=== PATIENT | female | born 1945 | race Caucasian/White ===

== ENCOUNTER 2019-05-16 11:50 | Outpatient (CLI) | payer MEDICARE, OTHER | END 2019-05-16 11:51 | disposition home or self-care (01) | LOC: LAB 11:50 | PROVIDERS: ATTEND Internal Medicine | DX: I77.9 Disorder of arteries and arterioles, unspecified (principal); H34.8192 Central retinal vein occlusion, unspecified eye, stable; Z82.49 Family history of ischemic heart disease and other diseases of the circulatory system | CPT/HCPCS: 36415; 81241; 81599; 85300; 85303; 85306; 85307; 86146; 86147; 86148 ==

== ENCOUNTER 2024-05-26 18:59 | Emergency (ER) | payer MEDICARE, OTHER ==
[2024-05-26 19:33] LABS: BASOPHILS % (AUTO) 0.6 %; EOSINOPHILS # (AUTO) 0.2 10^3/uL (0.0-0.7); EOSINOPHILS % (AUTO) 2.2 %; HCT - HEMATOCRIT 38.1 % (37.0-47.0); HGB - HEMOGLOBIN 12.5 g/dL (12.0-16.0); LYMPHOCYTES # (AUTO) 1.1 10^3/uL (1.5-3.5); LYMPHOCYTES % (AUTO) 16.4 %; MEAN CORPUSCULAR HEMOGLOBIN 30.9 pg (27.0-31.0); MEAN CORPUSCULAR HGB CONC 32.8 g/dL (32.0-36.0); MEAN CORPUSCULAR VOLUME 94.1 fL (81.0-99.0); MEAN PLATELET VOLUME 8.5 fL (7.9-10.8); MONOCYTES # (AUTO) 1.1 10^3/uL (0.0-1.0); MONOCYTES % (AUTO) 16.1 %; NEUTROPHILS # (AUTO) 4.5 10^3/uL (1.5-6.6); NEUTROPHILS % (AUTO) 64.3 %; PLT - PLATELET COUNT 233 10^3/uL (130-450); RED BLOOD COUNT 4.05 10^6/uL (4.20-5.40); RED CELL DISTRIBUTION WIDTH 12.9 % (12.0-15.0); WHITE BLOOD COUNT 6.9 x10^3/uL (4.8-10.8)
[2024-05-26] MEDS: methocarbamoL 500 MG TABLET PO STA (19:43)
[2024-05-26] MEDS: ACETAMINOPHEN 325 MG TABLET PO STA (19:43)
[2024-05-26] MEDS: LIDOCAINE PATCH 4% TOP STA (19:44)
--- NOTE | 2024-05-26 19:49 | ED Physician Documentation ---
History of Present Illness - Stated complaint Stated Complaint: NECK PX - Chief complaint Chief Complaint: Trauma Hd/Nk - Additonal information Additional information: 78-year-old female presents with upper back pain. History clarified from triage notes. Patient states in the last few days, she was working heavily in the garden, then developed right upper back pain that radiated towards her left upper back and involves bilateral posterior neck as well. She notes having had similar pain in the past with activity. She has no chest pain or shortness of breath. Pain is not affected by exertion. Her neck is not stiff, though twisting mildly worsens pain. No headache. No nausea or vomiting. No fevers or chills. No rash. No visual or hearing changes, focal numbness or weakness, difficulty walking or talking or eating. She takes aspirin at home in the setting of history of Leyden factor V, but denies other pain medications or anticoagulation. She is here with spouse. No other new concerns. She denies prior neck surgeries to me. ROS Constitutional: no fever, no chills Eyes: no visual disturbance, no discharge Ears, Nose, Mouth, Throat: no rhinorrhea, no sore throat Cardiovascular: no chest pain, no palpitations Respiratory: no cough, no shortness of breath Gastrointestinal: no abdominal pain, no vomiting, no diarrhea Genitourinary: no dysuria, no hematuria Musculoskeletal: +as above back pain, no neck stiffness Skin: no rash, no wound Neurological: no focal weakness, no focal numbness PD PAST MEDICAL HISTORY - Past Medical History Past Medical History: Yes Cardiovascular: Arrhythmia - Past Surgical History Cardiovascular: Angioplasty - Present Medications Home Medications: Ambulatory Orders Medication Instructions Recorded Confirmed Lidocaine Patch 5% [Lidoderm Patch] 1 each PATCH DAILY PRN #30 patch 05/26/24 methocarbamoL [Methocarbamol] 500 mg PO Q8H PRN #10 tablet 05/26/24 - Allergies Allergies/Adverse Reactions: Allergies Allergy/AdvReac Type Severity Reaction Status Date / Time Penicillins Allergy Emesis Verified 05/26/24 19:04 tetracycline Allergy Emesis Verified 05/26/24 19:04 - Social History Does the pt smoke?: No Smoking Status: Never smoker Does the pt drink ETOH?: No Does the pt have substance abuse?: No - Immunizations Immunizations are current?: Yes PD ED PE NORMAL - Free text exam Free text exam: Const: no acute distress, non toxic appearing; calm, conversant, pleasant Eyes: PERRLA, EOMI ENT: mucous membranes moist Neck: supple, non-tender; there is mild bilateral paraspinal C-spine tenderness without tenderness over C-spine itself, with no bruits or thrills, lesions, swelling; pain mildly worsens with patient rotating head either direction Resp: no respiratory distress, clear to auscultation bilaterally Card: regular rate and rhythm, no murmurs Abd: non tender diffusely, no rigidity or rebound or guarding Back: no T or L spine tenderness, no CVA tenderness bilaterally; there is mild trapezius tenderness bilaterally without induration, lesions Extrem: no deformities, no swelling bilateral lower extremities, 2+ distal pulses all extremities; 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 testing specialist 2-12 intact. No rotatory or vertical nystagmus. Normal tone all extremities. Sensation intact to light touch all extremities. No ankle clonus bilaterally. 5/5 motor strength all extremities. Normal coordination. Negative Romberg. Normal gait. No dysarthria. No neglect. Grossly normal cognition. Skin: no rash, warm and dry Results - Vitals Vitals: Vital Signs - 24 hr 05/26/24 05/26/24 19:04 22:21 Temperature 36.5 C Heart Rate 100 86 Respiratory 16 14 Rate Blood Pressure 150/90 H 142/100 H O2 Saturation 100 98 Oxygen O2 Source Room air - EKG (time done) EKG afib with rate WNL, no STEMI, no immediately concerning interval prolongation; see MDM. EKG releavant findings:: EKG personally interpreted by author of this note. Relevant findings are: Repeat EKG remains afib with rate WNL, with similar morphology to prior including T-waves, no STEMI, no immediately concerning interval prolongation. EKG releavant findings:: EKG personally interpreted by author of this note. Relevant findings are: - Labs Labs: Laboratory Tests 05/26/24 05/26/24 05/26/24 19:29 19:29 21:27 WBC 6.9 RBC 4.05 L Hgb 12.5 Hct 38.1 MCV 94.1 MCH 30.9 MCHC 32.8 RDW 12.9 Plt Count 233 MPV 8.5 Neut # (Auto) 4.5 Lymph # (Auto) 1.1 L Cannon # (Auto) 1.1 H Eos # (Auto) 0.2 Baso # (Auto) 0.0 Absolute Nucleated RBC 0.00 Nucleated RBC % 0.0 Sodium 132 L Potassium 4.3 Chloride 98 L Carbon Dioxide 28 Anion Gap 6.0 BUN 20 Creatinine 0.7 Estimated GFR (MDRD) 81 L Glucose 112 H Calcium 9.4 Total Bilirubin 0.6 AST 16 ALT 12 Alkaline Phosphatase 60 Troponin I High Sens 13.2 13.9 Total Protein 7.5 Albumin 3.9 Globulin 3.6 Albumin/Globulin Ratio 1.1 PD Medical Decision Making - ED course ED course: This patients presentation is strongly suggestive of musculoskeletal cause for pain. Patient has palpable tenderness, worsening pain with rotation of head, with no clear exertional symptoms, no chest pain, shortness of breath. She is fully neurovacularly intact. I have nonetheless considered ACS from referred pain and will obtain and trend EKG and troponin. This is not consistent with vascular dissection such as vertebral artery dissection, with patient fully neurovascularly intact and with bilateral tenderness. This is not consistent with meningitis, shingles or other infection. This is not consistent with fracture. I am giving tylenol, lidocaine patches, methocarbal and will closely reassess, while obtaining EKG, CBC, CMP, troponin. EKG: Probable atrial fibrillation with rate within normal limits, no STEMI, no chest pain, however note T wave inversions in lateral leads and at minimum T wave flattening in inferior leads. No immediately concerning interval prolongation Labs: CBC reassuring, no leukocytosis, anemia, thrombocytopenia. CMP with mild hyponatremia without recent for comparison, mild hypochloremia, LFTs and creatinine within normal limits. Troponin returned at 13.2, without prior for comparison. I will trend, repeating at roughly 9:30 PM. I reassessed patient and discussed her EKG findings. She notes in fact she does have a history of known atrial fibrillation, and is on beta-blockers for this. She however decided not to take anticoagulation, stating she had non-bleeding side effects in past to Eliquis. I discussed with her I am concerned by her lack of anticoagulation, given her Leiden factor V, atrial fibrillation, age, and risk for stroke. I recommended trial of another anticoagulation medication. She understands this recommendation and why but is choosing not to initiate anticoagulation and rather follow up outpatient regarding this. In addition, regarding her pain, it has now clearly improved with muscle relaxers. She states turning her head hurts less, whereas it previously worsened her pain. I also trialed NTG but this has no effect. This is overall consistent with MSK etiology, though of out caution and given EKG findings, I will repeat EKG and troponin as planned to trend. 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 Repeat EKG remains afib with rate WNL, with similar morphology to prior including T-waves, no STEMI. Patient with no chest pain. No immediately concerning interval prolongation. Repeat troponin: reassuring. Patient with multiple exams that strongly suggest improve musculoskeletal pain, arguing strongly against referred pain from ACS. EKG TWI and T wave flattening are stable, as is troponin. I am prescribing lidocaine patches and methocarbamol, and we discussed importance of close follow-up and return precautions, including with primary care and cardiology, though I do suspect cardiology related follow-up is incidental to today's presentation. Results of work up today were discussed with the patient. Patient ambulatory and tolerating PO. Repeat exams and vital signs reassuring. Blood pressure is elevated but suitable for outpatient follow up. Patient questions answered and plan reviewed. Strong return precautions given. Patient discharged. Departure - Departure Disposition: 01 Home, Self Care Condition: Good Prescriptions: Lidocaine Patch 5% [Lidoderm Patch] 1 each PATCH DAILY PRN #30 patch PRN Reason: Pain 1-4 methocarbamoL [Methocarbamol] 500 mg PO Q8H PRN #10 tablet PRN Reason: Pain 5-7 Comments: It was a pleasure taking care of you today. It is important to fully read and understand the below. Please ask us if you have any questions. We think the most likely cause of your symptoms may be musculoskeletal pain. Please continue Tylenol, lidocaine patches, methocarbamol. Note methocarbamol can be sedating, so please be careful with this. As discussed, you have EKG findings along with need for further consideration of anticoagulation that you should discuss with a quality control tech soon. You preferred not to start anticoagulation today. Please see a primary doctor within 3 to 5 days to be reassessed and discuss your ER workup. No tests or assessments are perfect, and your condition could record changer tester time. If your symptoms change or worsen, it is very important you immediately seek medical care. If you have any new or worsening pain, shortness of breath, fever, vomiting, confusion, numbness, weakness, visual or hearing changes, trouble walking or talking or eating, or anything else that concerns you, please immediately seek medical care. If you have been prescribed any medications: please read the drug package in serts on how to properly use the medication and any potential side effects. If you had labs (blood tests) or imaging (CT scan or x-rays) done during your visit: please follow up on the results of these with your primary care doctor, as discussed. In addition, please know the results we received today may be preliminary. Our usual practice is to follow up on tests within a few days of a patient's discharge from the Emergency Department and notify you of any changes. These may lead to changes to your treatment plan. However, the best way to obtain and interpret these test results is through your Primary Care Provider. If you need to update your contact information, please stop by the front end drupal developer and alert the Registration personnel before you leave the Emergency Department. Thank you for the opportunity to participate in your healthcare. We are always here and happy to see you in the future. Forms: PCP List Discharge Date/Time: 05/26/24 22:21
[2024-05-26 19:56] LABS: ALBUMIN 3.9 g/dL (3.2-5.5); ALBUMIN/GLOBULIN RATIO 1.1 (1.0-2.2); BILIRUBIN,TOTAL 0.6 mg/dL (0.2-1.0); CALCIUM 9.4 mg/dL (8.5-10.3); CREATININE 0.7 mg/dL (0.6-1.3); POTASSIUM 4.3 mmol/L (3.5-4.5); TOTAL PROTEIN 7.5 g/dL (6.4-8.9)
[2024-05-26 19:57] LABS: TROPONIN I HIGH SENSITIVITY 13.2 ng/L (2.3-14.8)
[2024-05-26] MEDS: NITROGLYCERIN SL 0.4 MG TABLET SL STA (20:29)
[2024-05-26 22:23] VITALS: BP 142/100; O2SAT 98
== END 2024-05-26 22:21 | disposition home or self-care (01) ==
LOC: ED 18:59
DX: M54.6 Pain in thoracic spine (principal); X58.XXXA Exposure to other specified factors, initial encounter; Y93.H2 Activity, gardening and landscaping; Y92.007 Garden or yard of unspecified non-institutional (private) residence as the place of occurrence of the external cause; D68.51 Activated protein C resistance; I48.91 Unspecified atrial fibrillation
CPT/HCPCS: 36415; 80053; 84484; 85025; 93005; 99283; A9270